=== PATIENT | male | born 1970 | race Caucasian/White ===

== ENCOUNTER 2024-07-21 18:34 | Emergency (ER) | payer BC, SELFPAY ==
[2024-07-21 18:37] VITALS: BP 144/98
--- NOTE | 2024-07-21 19:47 | ED.MUSCINJ ---
HPI-Injury
General
Chief Complaint: Musculo-Skeletal Complaint
Source: patient and spouse
Exam Limitations: none
Time Seen by Provider: 07/21/24 19:25
Nursing documentation reviewed up to this point in time: agreed with
History of Present Illness-Injury
Is this injury a work related problem?: No
Is pt an associate of [facility]/[place]?: No
Initial Injury comments:
54-year-old male left wrist pain status post slip on the ice putting out [place] happened prior to arrival,in 2019 he had surgery from [address] Hammonds from [facility] [place] [facility] to the same wrist has some bone was removed from his hand,
no head trauma no head strike moderate pain moderate swelling
Past History
Past History
ED Past Surgical History: Orthopedic (Resection of hand bones by Dr. Hammonds)
Social History
Tobacco: Non-smoker
Alcohol: None
Drug: None
Personal:
Living: with family
Employment: Employed
Review of Systems
Review of Systems
All Other Systems: Not applicable
Musculoskeletal: Reports joint pain
Phy Exam
Physical Exam
Physical Exam:
Physical Exam
General: no apparent distress, not acutely ill
Neck:no overt signs head or neck
Heart: s1/s2 regular rate and rhythm, no murmur. equal radial pulses.
Lungs: no acute respiratory distress. clear bilaterally
Neuro: alert and oriented. no focal neurological deficits
Skin: no rash
Psychiatric: well kept. interactive and cooperative
Extremities: Mild swelling of the left wrist strong radial pulse no open wounds
Injury Course
Orders/Labs/Results
Orders:
Orders
07/21/24 18:35
Wrist, Left 3 Views CR [CR Wrist - Left Min 3 Views] Urgent
Comment:
Reason For Exam: pain
07/21/24 19:36
Ibuprofen [Motrin] 600 mg PO NOW STA
Oxycodone/Acetaminophen [Percocet 5/325] 1 tablet PO NOW STA
07/21/24 19:37
Sling Left-Treatment ONCE
Splints/Slings/Crut- Treatment ONCE
Procedures
Splint Check
Splint checked by provider?: No
Splinting/Sling Placement
Left wrist:
Procedure completed by: rn
Pre-splint extermity exam: neurovascular intact
Type of splint: volar
Splint material: universal
Splint checked by provider?: No
Type of sling: sling fitted
MDM/Problems Addressed
Differential Diagnosis Includes:
Fracture contusion bruise
MDM/Problems Addressed:
Wrist pain
Chronic conditions affecting care:
Prior wrist surgery
*Critical Care Note
Total Time (30-74mins, 75-104mins- exclusive of procedures): Not Applicable
Update Note
Update Note:
Update, patient with a slightly displaced distal radius fracture neurovascular intact has had surgery to the same extremity region previously he would like to follow-up with that condition which is not unreasonable also given the name for local hand
surgeon will give him copies of his images on a disk
ED Attending Note
-
Portions of this chart may have been created with voice recognition software.� Occasional wrong word or��sound alike� substitutions may have occurred due to the inherent limitations of voice recognition software.
Discharge Plan
Departure
Patient Disposition: Home (Routine Discharge)
Date of Disposition: 07/21/24
Time of Disposition: 19:37
Patient with high blood pressure during this ER visit?: No
Condition: Good
Discharge Problem:
Fracture of wrist
Instructions: Ibuprofen, How to Use a Shoulder Sling, Splint Care
Prescriptions:
New
ibuprofen 600 mg tablet
600 mg PO Q6H PRN (Reason: Pain) Qty: 30 0RF
oxycodone-acetaminophen [Percocet] 5-325 mg tablet
1 tab PO Q4HPRN PRN (Reason: pain) Qty: 10 0RF
Referrals:
Joshua Boothe MD [Active] - Next open appointment
Casie Hammonds MD [Non-Admitting Privileges] - Next open appointment
Saeid Casas DO [Family Provider] -
Interventions
Interventions:
*ED COVID-19 Vaccine History Last Done: 07/21/24 18:37
Discharge Date and Time
Print Language: [place]
[2024-07-21 21:40] VITALS: BP 135/86
== END 2024-07-21 21:43 | disposition home or self-care (01) ==
LOC: EMR 18:34
PROVIDERS: EMERGENCY PHYSICIAN Emergency Medicine; FAMILY PHYSICIAN Family Medicine
DX: S62.102A Fracture of unspecified carpal bone, left wrist, initial encounter for closed fracture (principal); W00.0XXA Fall on same level due to ice and snow, initial encounter
CPT/HCPCS: 99283; 29125; 73110